=== PATIENT | female | born 1995 | race Caucasian/White ===

== ENCOUNTER → 2022-01-22 | Outpatient (CLI) | payer BC | END | disposition home or self-care (01) | LOC: LAB 12:10 → LAB SHORT 12:10 | DX: R21 Rash and other nonspecific skin eruption (principal); L21.8 Other seborrheic dermatitis; B35.4 Tinea corporis | CPT/HCPCS: 87070; 87205 ==

== ENCOUNTER → 2023-01-15 | Outpatient (CLI) | payer OTHER ==
[2023-01-15 17:30] LABS: BASOPHILS ABSOLUTE AUTO 0.05 K/mm3 (0.00-0.23); BASOPHILS PERCENT AUTO 1 % (0-2); EOSINOPHILS ABSOLUTE AUTO 0.11 K/mm3 (0.00-0.68); EOSINOPHILS PERCENT AUTO 1 % (0-6); Hematocrit 36.7 % (33.0-51.0); Hemoglobin 12.9 g/dL (11.5-16.0); IMMATURE GRAN ABSOLUTE AUTO 0.02 K/mm3 (0.00-0.10); IMMATURE GRAN PERCENT AUTO 0 % (0-1); LYMPHOCYTES ABSOLUTE AUTO 2.22 K/mm3 (0.84-5.20); LYMPHOCYTES PERCENT AUTO 21 % (21-46); MONOCYTES ABSOLUTE AUTO 0.66 K/mm3 (0.16-1.47); MONOCYTES PERCENT AUTO 6 % (4-13); Mean Corpuscular HGB 31.2 pg (26.0-34.0); Mean Corpuscular HGB Conc 35.1 g/dL (31.5-36.5); Mean Corpuscular Volume 89 fL (80-100); Mean Platelet Volume 9.9 fL (9.1-12.4); NEUTROPHILS ABSOLUTE AUTO 7.34 K/mm3 (1.96-9.15); NEUTROPHILS PERCENT AUTO 71 % (41-73); Platelet Count 247 K/mm3 (150-400); RDW Coefficient Variation 12.4 % (11.7-14.2); RDW Standard Deviation 39.9 fL (35.1-46.3); Red Blood Cell Count 4.14 M/mm3 (3.80-5.20)
[2023-01-15 17:41] LABS: Albumin, Blood 4.3 g/dL (3.4-5.0); Albumin/Globulin Ratio 1.2 (0.8-1.8); Bilirubin, Total 0.9 mg/dL (0.1-1.0); Bun/Creatinine Ratio 10.8 (12.0-20.0); Calcium, Blood 9.3 mg/dL (8.5-10.1); Creatinine, Blood 0.74 mg/dL (0.40-1.00); Globulin, Blood 3.6 g/dL (2.2-4.0); Potassium, Blood 3.4 mmol/L (3.5-5.5); Total Protein, Blood 7.9 g/dL (6.4-8.2)
== END | disposition home or self-care (01) ==
LOC: LAB SHORT 17:25 → LAB 17:25
PROVIDERS: Physician Assistant
DX: N39.0 Urinary tract infection, site not specified (principal); R10.9 Unspecified abdominal pain; R53.83 Other fatigue
CPT/HCPCS: 80053; 83690; 85025; 87086

== ENCOUNTER → 2023-01-17 | Outpatient (CLI) | payer OTHER ==
[2023-01-18 10:49] LABS: Candida species (DNA Probe) Negative (NEGATIVE); G. vaginalis (DNA Probe) Negative (NEGATIVE); T. vaginalis (DNA Probe) Negative (NEGATIVE)
== END | disposition home or self-care (01) ==
LOC: LAB 17:46 → LAB SHORT 17:46
PROVIDERS: Emergency Medicine
DX: N39.0 Urinary tract infection, site not specified (principal); R10.2 Pelvic and perineal pain
CPT/HCPCS: 87086; 87480; 87510; 87660

== ENCOUNTER 2024-07-16 00:07 | Emergency (ER) | payer OTHER ==
[~2024-07-16] VITALS: Ht 157.5 cm; Wt 49.9 kg
[2024-07-16] MEDS ORDERED: Lidocaine 4% 1 Patch TOP ONE (01:00)
[2024-07-16] MEDS ORDERED: Ibuprofen 600 MG Tab PO ONE (01:00)
[2024-07-16 01:35] VITALS: BP 126/72
== END 2024-07-16 01:35 | disposition home or self-care (01) ==
LOC: ER 00:07
DX: S29.011A Strain of muscle and tendon of front wall of thorax, initial encounter (principal); X50.9XXA Other and unspecified overexertion or strenuous movements or postures, initial encounter; Y99.0 Civilian activity done for income or pay
CPT/HCPCS: 99283; A9270